=== PATIENT | female | born 1945 | race Caucasian/White ===

== ENCOUNTER 2023-11-02 12:02 | Emergency (ER) | payer OTHER, MEDICARE ==
[~2023-11-02] VITALS: Ht 170.2 cm; Wt 76.7 kg
[~2023-11-02 12:02] MED LIST: COLACE100 MG PO; EXCEDRIN EXTRA1 EACH PO; HYDROCODON-ACE1 EAC6 PO; OXYCODONE-ACET1 EAC3
--- OUTSIDE RECORDS SUMMARY | 2023-11-02 12:04 | XMS ---
PreManage Notification: TERESA STRINGER Security Sectionizer Events No recent Security Events currently on file CRITERIA MET - [facility] - [facility] - 2 Visits in 30 Days CARE PROVIDERS There are no care providers on record at this time. Melissa has no Care Guidelines for this patient. [facility] (12 MO.) [facility] NOTE: Visits indicate total known visits. ED/C VISIT TRACKING (12 MO.) [facility]02[facility]23 12[facility] COMPLAINT: - FALL, R WRIST PAIN 10/27/2023 17:[address] [facility] TYPE: Emergency COMPLAINT: - CONSTIPATION DIAGNOSES: - Allergy status to narcotic agent - Allergy status to other antibiotic agents - Allergy status to other drugs, medicaments and biological substances - Allergy status to penicillin - Constipation, unspecified - USP (current) use of aspirin - Nicotine dependence, unspecified, uncomplicated - Other allergy status, other than to drugs and biological substances INPATIENT VISIT TRACKING (12 MO.) No inpatient visits to display in this time frame [email or web address]
[2023-11-02] MEDS ORDERED: VENTOLIN HFA18 GM INH (12:27)
== END 2023-11-02 14:22 | disposition home or self-care (01) ==
LOC: ED 12:02
DX: S52.601A Unspecified fracture of lower end of right ulna, initial encounter for closed fracture (principal); J44.9 Chronic obstructive pulmonary disease, unspecified; G25.81 Restless legs syndrome; F17.200 Nicotine dependence, unspecified, uncomplicated; Z79.899 Other long term (current) drug therapy; Z88.0 Allergy status to penicillin; Z88.1 Allergy status to other antibiotic agents; Z88.8 Allergy status to other drugs, medicaments and biological substances; Z91.048 Other nonmedicinal substance allergy status; W01.0XXA Fall on same level from slipping, tripping and stumbling without subsequent striking against object, initial encounter
CPT/HCPCS: 29125; 73090; 99283-25

== ENCOUNTER 2025-08-27 17:39 | Emergency (ER) | payer OTHER, MEDICARE ==
[~2025-08-27] VITALS: Ht 170.2 cm; Wt 73.3 kg
[~2025-08-27 17:39] MED LIST changes: +VENTOLIN HFA18 GM INH
[2025-08-27 17:51] LABS: BASOPHILS 0.6 % (0.1-1.2); EOSINOPHILS 4.7 % (0.7-5.8); LYMPHOCYTES 39.1 % (19.3-51.7); MCH 30.8 PG (25.6-32.2); MCHC 31.8 g/dL (32.2-35.5); MCV 96.8 fL (79.4-94.8); MONOCYTES 7.0 % (4.7-12.5); NEUTROPHILS 48.4 % (34.0-71.1); RBC 4.06 M/uL (3.93-5.22)
[2025-08-27 18:14] LABS: INR 0.95 (0.80-1.30); PROTIME 12.0 Sec (11.2-14.2)
[2025-08-27 18:15] LABS: ALCOHOL, MEDICAL <3 ng/dL (<3); ALT (SGPT) 45 U/L (14-59); AST (SGOT) 29 U/L (15-37); GLOMERULAR FILTRATION RATE,EST 51 mL/min (>60); PROTEIN, TOTAL 7.6 g/dL (6.4-8.2); UREA NITROGEN 28 mg/dL (7-18)
[2025-08-27 20:18] VITALS: BP 154/53
== END 2025-08-27 20:18 | disposition home or self-care (01) ==
LOC: ED 17:39
PROVIDERS: Emergency Medicine
DX: S01.312A Laceration without foreign body of left ear, initial encounter (principal); F17.200 Nicotine dependence, unspecified, uncomplicated; W01.0XXA Fall on same level from slipping, tripping and stumbling without subsequent striking against object, initial encounter; Z79.899 Other long term (current) drug therapy; Z91.048 Other nonmedicinal substance allergy status; Z88.1 Allergy status to other antibiotic agents; Z88.0 Allergy status to penicillin; Z88.8 Allergy status to other drugs, medicaments and biological substances
CPT/HCPCS: 12013; 36415; 70450; 80053; 80307; 85025; 85610; 99284-25; G0390; G0480